=== PATIENT | male | born 1970 | race Two or more races ===

== ENCOUNTER 2025-04-02 22:22 | Emergency (ER) | payer OTHER ==
[~2025-04-02] VITALS: Ht 175.3 cm; Wt 102.1 kg
[~2025-04-02 22:22] MED LIST: JANUMET 50-501 UDTAB; SIMVASTATIN10 MG; VASOTEC5 MG
[2025-04-02] MEDS ORDERED: BAYER CHEWABLE81 MG PO (22:34)
[2025-04-02] MEDS ORDERED: VYTORIN 10-201 EACH (22:34)
[2025-04-02] MEDS ORDERED: SEGLUROMET 7.51 EAC1 PO (22:34)
[2025-04-02] MEDS ORDERED: ROSUVASTATIN CA20 MG PO (22:35)
[2025-04-02] MEDS ORDERED: FAMOTIDINE/PF 20 MG in 0.9 % SODIUM CHLORIDE 8 ML IV PUSH STA (22:58)
[2025-04-02] MEDS ORDERED: 0.9 % SODIUM CHLORIDE 1,000 ML IV ONE (23:00)
[2025-04-02] MEDS ORDERED: ONDANSETRON HCL 2 MG/ML VIAL IV ONE (23:00)
[2025-04-02] MEDS ORDERED: TAMSULOSIN HCL 0.4 MG CAP PO ONE (23:00)
[2025-04-02] MEDS ORDERED: MORPHINE SULFATE 4 MG/ML VIAL IV ONE (23:45)
[2025-04-02] MEDS ORDERED: KETOROLAC TROMETHAMINE 30 MG VIAL IV ONE (23:45)
[2025-04-03 00:12] LABS: BASO % 0.4 % (0.1-1.2); EOS # 0.15 (0.04-0.54); EOS % 1.1 % (0.7-7.0); LYMPH # 1.33 (1.18-3.74); LYMPH % 9.4 % (19.3-53.1); MEAN PLATELET VOLUME 9.10 fl (9.4-12.4); MONO # 1.19 (0.24-0.82); MONO % 8.4 % (4.7-12.5); NEUT # 11.36 (1.56-6.13); NEUT % 80.3 % (34.0-71.1); RED CELL DISTRIBUTION WIDTH 13.3 % (11.6-14.4)
[2025-04-03 00:31] LABS: ALT/SGPT 30.0 U/L (12-78); AST/SGOT 14.0 U/L (15-37); BILIRUBIN TOTAL 0.92 mg/dL (0.3-1.2); BUN CREA RATIO 16.0 (7.0-25.0); CREATININE SERUM 1.14 mg/dL (0.70-1.30); GFR 66.69; GLOBULINA 3.1 G/DL (2.4-3.5); GLUCOSE FASTING 149.0 mg/dL (65-100); OSMOLALITY SERUM 288.0 MOSM/KG (275-295)
[2025-04-03 01:09] LABS: URINE APPEARANCE Clear; URINE BILIRRUBIN Negative (NEGATIVE); URINE BLOOD Negative; URINE COLOR Yellow; URINE KETONE 15 (NEGATIVE); URINE LEUKOCYTE Negative; URINE NITRATE Negative; URINE PROTEIN Negative (NEGATIVE); URINE UROBILINOGEN 1.0 E.U./dl
[2025-04-03 01:13] LABS: URINE BACTERIA 10.7 uL (0.0-1933); URINE EPITHELIAL CELLS 1.6 uL (0.0-38.8); URINE RBC 2.3 uL (0.0-20.8); URINE WBC 1.8 uL (0.0-23.2)
[2025-04-03 01:23] LABS: URINE CAST 0.00 uL (0.0-1.40); URINE GLUCOSE >=1000 MG/DL (NEGATIVE)
== END 2025-04-03 03:34 | disposition home or self-care (01) ==
LOC: ER 22:22
PROVIDERS: General Practice
DX: N20.1 Calculus of ureter (principal); R10.9 Unspecified abdominal pain; R11.2 Nausea with vomiting, unspecified; E11.9 Type 2 diabetes mellitus without complications; I10 Essential (primary) hypertension; Z79.84 Long term (current) use of oral hypoglycemic drugs